=== PATIENT | male | born 1950 | race Caucasian/White ===

== ENCOUNTER 2020-04-10 09:10 | Outpatient (CLI) | payer MEDICARE ==
[2020-04-10 14:40] LABS: #Eosinphils 0.1 10x3/uL (0.0-0.5); #Monocytes 0.5 10x3/uL (0.0-1.1); #Neutrophils 4.5 10x3/uL (1.5-8.4); %Basophils 0.5 % (0.0-2.0); %Eosinophils 1.9 % (0.0-6.0); %Lymphocytes 30.9 % (18.0-47.0); %Monocytes 6.1 % (0.0-10.0); %Neutrophils 60.3 % (40.0-75.0); Hemoglobin 15.1 g/dL (14.0-18.0); Mean Corpuscular HGB CONC 32.9 G/DL (32.0-36.0); Mean Corpuscular Hemoglobin 30.4 PG (27.0-33.0); Mean Corpuscular Volume 92.4 fl (80.0-100.0); Mean Platelet Volume 10.4 fl (7.4-10.4); Platelet Count 241 10x3/uL (130-400); RBC Distribution Width 13.5 % (11.5-14.5); Red Blood Cell (RBC) Count 4.97 10x6/uL (4.40-5.80); White Blood Cell (WBC) Count 7.5 10x3/uL (4.5-11.0)
[2020-04-10 15:03] LABS: ALT (SGPT) 17 U/L (8-55); AST (SGOT) 16 U/L (5-34); Albumin 4.1 g/dL (3.4-4.8); Alkaline Phosphatase 85 U/L (40-110); Anion Gap 13 mmol/L (10-20); BUN (Urea Nitrogen) 14 mg/dL (8.4-25.7); Bilirubin, Total 1.9 mg/dL (0.2-1.2); Calc. Creatinine Clearance 0 mL/min (70-130); Carbon Dioxide 28 mmol/L (23-31); Chloride 104 mmol/L (98-107); Globulin 2.3 g/dL (2.4-3.5); Glucose 113 mg/dL (80-115); Protein, Total 6.4 g/dL (5.8-8.1); Sodium 141 mmol/L (136-145)
[2020-04-10 23:09] LABS: SARS-CoV-2 MS2 Positive; SARS-CoV-2 N Gene Negative; SARS-CoV-2 S Gene Negative; SARS-CoV-2 by NAA Not Detected (NotDetected); SARS-CoV-2 orf1ab Negative
== END 2020-04-10 09:11 | disposition home or self-care (01) ==
LOC: LABBT 09:10
PROVIDERS: ATTEND Internal Medicine Cardiovascular Disease
DX: Z01.818 Encounter for other preprocedural examination (principal); Z20.828 Contact with and (suspected) exposure to other viral communicable diseases; R06.00 Dyspnea, unspecified
CPT/HCPCS: 80053; 85025; U0003; 87635; 93005; 93010

== ENCOUNTER 2020-04-13 05:57 | Observation (INO) | payer MEDICARE ==
[2020-04-13] MEDS ORDERED: Iopamidol 370 76% 50 ML VIAL FS ONE (09:20)
[2020-04-13] MEDS ORDERED: Iopamidol 370 76% 100 ML VIAL ONE (09:20)
[2020-04-13] MEDS ORDERED: Heparin 10,000 UNITS/ 10 ML VIAL ONE (11:28)
[2020-04-13] MEDS ORDERED: Fentanyl 100 MCG/2 ML VIAL ONE (11:43)
[2020-04-13] MEDS ORDERED: Midazolam HCl 2 mg/2 ml Vial ONE (11:43)
[2020-04-13] MEDS ORDERED: Nitroglycerin 100MG/250ML BOT 250 ML ONE (12:14)
[2020-04-13] MEDS ORDERED: Atropine Sulfate 1 mg/10 ml Syringe ONE (12:14)
[2020-04-13] MEDS ORDERED: Ondansetron PF 4 MG/2 ML Vial ONE (12:15)
[2020-04-13] MEDS ORDERED: Protamine Sulfate 50 MG/5 ML VIAL ONE (12:28)
[2020-04-13] MEDS ORDERED: Nitroglycerin 0.4 MG TAB (25 Tab Bottle) SL PRN ×2 (13:20→13:30)
[2020-04-13] MEDS ORDERED: Acetaminophen/Codeine 30-300mg Tablet PO PRN ×2 (13:30)
[2020-04-13] MEDS ORDERED: Sodium Chloride 0.9% 1,000 ML IV SCH (13:30)
[2020-04-13] MEDS ORDERED: Acetaminophen/Codeine 30-300mg Tablet ONE (14:16)
[2020-04-13] MEDS: Carvedilol 3.125 MG TAB PO SCH (20:47)
[2020-04-13] MEDS ORDERED: Atorvastatin Calcium 40 MG TAB PO SCH (21:00)
[2020-04-14 00:18] VITALS: BMI 33.6
[2020-04-14] MEDS ORDERED: Furosemide 40 MG TAB PO SCH (09:00)
[2020-04-14] MEDS ORDERED: Tamsulosin HCl 0.4 MG CAP PO SCH (09:00)
[2020-04-14] MEDS ORDERED: Prenatal Vitamin 1 TAB PO SCH (09:00)
[2020-04-14] MEDS ORDERED: FLUoxetine HCl 20 MG CAP PO SCH (09:00)
[2020-04-14] MEDS ORDERED: Aspirin Chewable 81 MG TAB PO SCH (09:00)
[2020-04-14] MEDS ORDERED: Finasteride 5 MG TAB PO SCH (09:00)
[2020-04-14] MEDS ORDERED: Fish Oil 1,000 MG CAP PO SCH (09:00)
[2020-04-14] MEDS: Carvedilol 3.125 MG TAB PO SCH (09:25)
[2020-04-14 14:50] VITALS: BP 124/68; TEMP 97.4
[2020-04-14] MEDS ORDERED: FLU VACC QS2020-21(65YR UP)/PF 240 MCG/0.7 ML SYRINGE IM ONE (21:00)
--- NOTE | 2020-04-15 11:47 | DIS ---
DATE OF ADMISSION: 04/13/2020 DATE OF DISCHARGE: 04/14/2020 DISCHARGE DIAGNOSES: 1. Three-vessel coronary artery disease with patent left anterior descending stent and right posterior descending artery stent. 2. Probable coronary artery spasm. 3. Moderate left ventricular dysfunction with ejection fraction falling from 50% - 55% in March 2019 to 35% to 40% at catheterization now. 4. Hypercholesterolemia, under good control. 5. Essential hypertension. 6. Positive family history. 7. Former smoker. DISCHARGE MEDICATIONS: Isosorbide mononitrate 60 mg daily will be added to previous regimen of; 1. Aspirin 81 daily. 2. Atorvastatin 40 daily. 3. Carvedilol 3.125 b.i.d. 4. Finasteride 5 mg daily. 5. Fluoxetine 20 daily. 6. Furosemide 40 q.a.m. 7. Linzess 145 mcg p.r.n. 8. Zestril 5 mg daily. 9. [place]-3 of 1000 mg b.i.d. 10. vitamin. 11. Flomax 0.4 mg daily. HOSPITAL COURSE: Mr. Resendiz has been having increased dyspnea on exertion over the last 6 to 8 months. He also has been noted to have a fall in his ejection fraction on echocardiogram of 50% to 55% to 40% to 45%. He underwent cardiac catheterization. During the procedure, there was very poor flow - ED 1 into the LAD and it was felt this may have represented spasm. Intracoronary nitroglycerin was given with prompt resolution and ED-3 flow. The left main was normal. There was a patent stent in the LAD. The circumflex had a 50% mid stenosis and right coronary artery had a patent right posterior descending artery stent. Left ventriculogram revealed severe mid to distal anterior hypokinesis and apical akinesis with ejection fraction of 35% to 40%. Due to the poor ED 1 flow during the catheterization time, he was observed overnight. He was started on oral nitrates and this was increased from 30 to 60 mg at the time of discharge. Consideration also will be given to Ran[facility]. Pulmonary function tests will be obtained as an outpatient. Job ID: [id number] [facility]
== END 2020-04-14 16:05 | disposition home or self-care (01) ==
LOC: CCL 05:57 → 2NO 12:55
PROVIDERS: ADMIT Internal Medicine Cardiovascular Disease; ATTEND Internal Medicine Cardiovascular Disease
PROC: 4A023N7 Measurement of Cardiac Sampling and Pressure, Left Heart, Percutaneous Approach (ICD-10-PCS; principal; 2020-04-13)
PROC: B2151ZZ Fluoroscopy of Left Heart using Low Osmolar Contrast (ICD-10-PCS; 2020-04-13)
PROC: B2111ZZ Fluoroscopy of Multiple Coronary Arteries using Low Osmolar Contrast (ICD-10-PCS; 2020-04-13)
DX: I25.10 Atherosclerotic heart disease of native coronary artery without angina pectoris (principal); I25.5 Ischemic cardiomyopathy; I10 Essential (primary) hypertension; I25.2 Old myocardial infarction; E78.00 Pure hypercholesterolemia, unspecified; Z79.82 Long term (current) use of aspirin; Z79.899 Other long term (current) drug therapy; Z82.49 Family history of ischemic heart disease and other diseases of the circulatory system; Z87.891 Personal history of nicotine dependence
CPT/HCPCS: 85347; 93458; 99152; 99153; G0378; J0461; J1644; J2250; J2405; J2720; J3010; Q9967